=== PATIENT | male | born 1995 | race Caucasian/White ===

== ENCOUNTER 2022-10-04 20:24 | Inpatient (IN) | payer OTHER ==
[~2022-10-04] VITALS: Ht 170.2 cm; Wt 76.7 kg
[2022-10-04 22:29] LABS: HEMATOCRIT 45.5 % (42.0-52.0); HEMOGLOBIN 15.7 g/dl (13.5-17.5); MEAN CORPUSCULAR HEMOGLOBIN 29.5 pg (27.0-33.0); MEAN CORPUSCULAR HGB CONC 34.5 g/dl (32.0-36.5); MEAN CORPUSCULAR VOLUME 85.5 fl (80.0-96.0); PLATELET COUNT, AUTOMATED 247 10^3/uL (150-450); RED BLOOD COUNT 5.32 10^6/uL (4.30-6.10); WHITE BLOOD COUNT 9.5 10^3/uL (4.0-10.0)
[2022-10-04 22:46] LABS: ETHYL ALCOHOL (ETHANOL) 0.113 % (0.000-0.010)
[2022-10-04 22:47] LABS: SALICYLATE LEVEL < 3.0 MG/DL (<30)
[2022-10-04 22:48] LABS: ACETAMINOPHEN LEVEL < 2.0 UG/ML (10.0-20.0); BILIRUBIN,DIRECT 0.2 MG/DL (<0.4)
[2022-10-04 22:52] LABS: ALBUMIN 4.9 G/DL (3.2-5.2); ALKALINE PHOSPHATASE 76 U/L (46-116); ALT/SGPT 20 U/L (7.0-40); AST/SGOT 19 U/L (<34); BILIRUBIN,TOTAL 0.7 MG/DL (0.3-1.2); BLOOD UREA NITROGEN 9 MG/DL (9-23); CALCIUM LEVEL 10.3 MG/DL (8.5-10.1); CARBON DIOXIDE LEVEL 28 MMOL/L (20-31); CHLORIDE LEVEL 101 MMOL/L (98-107); CREATININE FOR GFR 0.95 MG/DL (0.70-1.30); GLOMERULAR FILTRATION RATE > 60.0 (>60); GLUCOSE, FASTING 87 MG/DL (60-100); POTASSIUM SERUM 4.2 MMOL/L (3.5-5.1); SODIUM LEVEL 140 MMOL/L (136-145); TOTAL PROTEIN 8.2 G/DL (5.7-8.2)
[2022-10-04 22:55] LABS: THYROID STIMULATING HORMONE 1.075 uIU/ML (0.55-4.78)
[2022-10-04 22:57] LABS: RSV AMPLIFICATION NEGATIVE (NEGATIVE)
[2022-10-04 23:15] LABS: AMPHETAMINES LEVEL URINE NEGATIVE (NEGATIVE); BARBITURATES URINE NEGATIVE (NEGATIVE); BENZODIAZEPINES URINE NEGATIVE (NEGATIVE); CANNABINOIDS URINE NEGATIVE (NEGATIVE); COCAINE METABOLITE URINE NEGATIVE (NEGATIVE); METHADONE URINE NEGATIVE (NEGATIVE); OPIATES URINE NEGATIVE (NEGATIVE); PHENCYCLIDINE URINE NEGATIVE (NEGATIVE)
[2022-10-05] MEDS ORDERED: HOME MED LIST COMPLETE! XX SCH (01:00)
[2022-10-05] MEDS ORDERED: MAALOX 30 ML SUSP *UDC PO PRN (20:10)
[2022-10-05] MEDS ORDERED: traZODone 50 MG TAB PO PRN (20:10)
[2022-10-05] MEDS ORDERED: ACETAMINOPHEN TAB 650MG DOSE (2X325MG) PO PRN (20:10)
[2022-10-05] MEDS ORDERED: MOM 30ML SUSPENSION UDC PO PRN (20:10)
[2022-10-05] MEDS ORDERED: LORazepam 2 MG TAB PO PRN (20:25)
[2022-10-05 21:43] VITALS: BP 111/55
[2022-10-05] MEDS: THIAMINE 100 MG TAB PO SCH (22:41)
[2022-10-06 06:15] VITALS: BP 104/55
[2022-10-06] MEDS: FOLIC ACID 1MG TAB PO SCH (09:22)
[2022-10-06] MEDS: MULTIVITAMINS/MINERALS THERAP 1 TAB PO SCH (09:22)
[2022-10-06] MEDS: SERTRALINE HCL 50 MG TAB PO SCH (09:22)
[2022-10-06] MEDS: THIAMINE 100 MG TAB PO SCH ×2 (09:22→21:34)
[2022-10-06 14:00] VITALS: BP 110/60
[2022-10-06 18:37] VITALS: BP 117/65
[2022-10-07 06:38] VITALS: BP 119/58
[2022-10-07 06:45] VITALS: BP 119/58
[2022-10-07] MEDS: THIAMINE 100 MG TAB PO SCH (09:08)
[2022-10-07] MEDS: MULTIVITAMINS/MINERALS THERAP 1 TAB PO SCH (09:08)
[2022-10-07] MEDS: FOLIC ACID 1MG TAB PO SCH (09:08)
[2022-10-07] MEDS: SERTRALINE HCL 50 MG TAB PO SCH (09:09)
[2022-10-07 14:19] VITALS: BP 127/67
[2022-10-07 19:35] VITALS: BP 171/70
[2022-10-08 06:29] VITALS: BP 125/60
[2022-10-08] MEDS: SERTRALINE HCL 50 MG TAB PO SCH (09:00)
[2022-10-08 17:31] VITALS: BP 122/61
[2022-10-09 06:32] VITALS: BP 111/54
[2022-10-09] MEDS: SERTRALINE HCL 50 MG TAB PO SCH (09:49)
[2022-10-09 17:46] VITALS: BP 120/57
[2022-10-10 06:19] VITALS: BP 124/58
[2022-10-10] MEDS: SERTRALINE HCL 50 MG TAB PO SCH (08:55)
[2022-10-10 17:54] VITALS: BP 140/64
[2022-10-11 06:41] VITALS: BP 95/48
[2022-10-11 07:36] VITALS: BP 104/50
[2022-10-11] MEDS: SERTRALINE HCL 50 MG TAB PO SCH (09:10)
[2022-10-11 17:46] VITALS: BP 119/57
[2022-10-12 06:40] VITALS: BP 106/50
[2022-10-12] MEDS ORDERED: SERT50TA29 PO (09:10)
[2022-10-12] MEDS: SERTRALINE HCL 50 MG TAB PO SCH (09:13)
== END 2022-10-12 12:30 | disposition home or self-care (01) | DRG 882 ==
LOC: M ED 20:24 → M ED INP 10-05 20:10 → M PSY 10-05 21:44
PROVIDERS: ADMIT Student in an Organized Health Care Education/Training Program; ATTEND Student in an Organized Health Care Education/Training Program
DX: F43.10 Post-traumatic stress disorder, unspecified (principal); R45.851 Suicidal ideations; F41.9 Anxiety disorder, unspecified

== ENCOUNTER 2023-07-06 09:27 | Emergency (ER) | payer OTHER ==
[~2023-07-06] VITALS: Ht 170.2 cm; Wt 90.7 kg
[~2023-07-06 09:27] MED LIST: SERT50TA29 PO
[2023-07-06] MEDS ORDERED: IBUP200C25 PO (09:36)
[2023-07-06 10:40] VITALS: BP 145/69; TEMP 98.4; O2SAT 97
== END 2023-07-06 10:50 | disposition home or self-care (01) ==
LOC: M ED 09:27
DX: S06.0X0A Concussion without loss of consciousness, initial encounter (principal); F41.9 Anxiety disorder, unspecified; F32.A Depression, unspecified; Y92.9 Unspecified place or not applicable; Y93.89 Activity, other specified; Y99.0 Civilian activity done for income or pay; Z79.1 Long term (current) use of non-steroidal anti-inflammatories (NSAID); Z79.899 Other long term (current) drug therapy

== ENCOUNTER → 2024-01-19 | Outpatient (REF) ==
[~2024-01-19] MED LIST changes: +IBUP200C25 PO
== END ==
LOC: M PLAIMG 10:48
PROVIDERS: ATTEND Internal Medicine
DX: R06.02 Shortness of breath (principal)